=== PATIENT | male | born 1980 | race African-American/Black ===

== ENCOUNTER 2021-09-13 23:25 | Emergency (ER) | payer MEDICAID ==
[~2021-09-13] VITALS: Ht 188 cm; Wt 89.0 kg
[2021-09-13 23:51] VITALS: BP 142/99
[2021-09-14] MEDS: IBUPROFEN 600MG TABLET PO ONE (00:15)
[2021-09-14] MEDS ORDERED: NAPR-1176 MT (01:23)
== END 2021-09-14 02:14 | disposition home or self-care (01) ==
LOC: ER 23:25
DX: M25.562 Pain in left knee (principal)
CPT/HCPCS: 73562; 99283